=== PATIENT | female | born 1985 | race Caucasian/White ===

== ENCOUNTER 2016-08-10 14:46 | Emergency (ER) | payer OTHER ==
[2016-08-10 15:56] LABS: Glucose,Whole Blood 94 mg/dL (75-99)
[2016-08-10] MEDS ORDERED: SODIUM CHLORIDE 0.9% 1,000 ML IV STA (16:29)
[2016-08-10] MEDS ORDERED: METOCLOPRAMIDE 5 MG/ML 2 ML VIAL IVP STA (16:29)
--- NOTE | 2016-08-10 16:35 | ED ---
General Adult HPI - General Chief complaint: Syncope Stated complaint: syncope Time Seen by Provider: 08/10/16 15:54 Source: patient, family, RN notes reviewed Mode of arrival: wheelchair Limitations: no limitations - History of Present Illness Initial comments: Chief complaint and history of present illness this is a 31-year-old female who after having had minor procedure at the [employer] office was dressed and standing and had a syncopal episode. The blood pressure was hard to obtain in the office her blood sugars 113. She was unconscious for approximately 1 minute did not hurt herself when she fell. There is no seizure activity. She was helped up the washroom symmetrical in the washroom. She then moved to a chair and while there and stated she felt like she was going to pass out and she did become more time but again no seizure activity. Again her blood pressure was hard to obtain. The patient arrived here blood pressure 115/72. 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 He did not seek medical attention at that time. - Related Data Home Medications Medication Instructions Recorded Confirmed Norgestimate-Ethinyl Estradiol 1 tab PO DAILY 05/27/15 08/10/16 [Trinessa Tablet] Acetaminophen Tab [Tylenol Tab] 975 mg PO ONCE 08/10/16 08/10/16 Sertraline [Zoloft] 50 mg PO DAILY 08/10/16 08/10/16 Allergies Allergy/AdvReac Type Severity Reaction Status Date / Time No Known Allergies Allergy Verified 08/10/16 16:00 Review of Systems ROS Statement: Those systems with pertinent positive or pertinent negative responses have been documented in the HPI. Review of systems currently no headache or visual acuity changes no chest pain shortness breath GI/ complaints of problems no neuro deficits. All systems are reviewed. In discussing the situation and the state law no driving for 6 months this seemed to aggravate the patient emotionally and she had a large emesis. Stated she had not felt nauseated beforehand. The patient did not pass out she was on a monitor the time heart rate was approximately 60. She had a cold wet towels placed around her right ear felt better. All systems are reviewed. Past medical problems as noted above Carlos 2 syncopal episodes active back while on the job 1 year ago. Otherwise no other medical problems. Surgeries tonsils and adenoids. Family history mother has diabetes. Patient denies ALLERGIES nonsmoker drink alcohol socially. Denies being overly tired today or last year when it happened for the first time ROS Other: All systems not noted in ROS Statement are negative. Past Medical History Past Medical History: No Reported History History of Any Multi-Drug Resistant Organisms: None Reported Past Surgical History: Adenoidectomy, Tonsillectomy Past Psychological History: No Psychological Hx Reported Smoking Status: Never smoker Past Alcohol Use History: Occasional Past Drug Use History: None Reported General Exam - General Exam Comments Initial Comments: General: The patient is awake and alert, in no distress, and does not appear acutely ill. He is here because she had 2 episodes of syncope after having had cervical biopsy. Patient denies any stress over the situation. Vital signs show temperature 97.8 pulse 60 respiratory rate 20 pulse ox 90% room air blood pressure 115/72 Eye: Pupils are equal, round and reactive to light, extra-ocular movements are intact ; there is normal conjunctiva bilaterally. No signs of icterus. Ears, nose, mouth and throat: There are moist mucous membranes and no oral lesions. Neck: The neck is supple, there is no tenderness or JVD. Cardiovascular: There is a regular rate and rhythm. No murmur, rub or gallop is appreciated. Respiratory: Lungs are clear to auscultation, respirations are non-labored, breath sounds are equal. No wheezes, stridor, rales, or rhonchi. Gastrointestinal: Soft, non-distended, non-tender abdomen without masses or organomegaly noted. There is no rebound or guarding present. No CVA tenderness. Bowel sounds are unremarkable. Back: There is no tenderness to palpation in the midline. There is no obvious deformity. No rashes noted. Musculoskeletal: Normal ROM, no tenderness, There is no pedal edema. There is no calf tenderness or swelling. Sensation intact. Pulses equal bilaterally 2+. Neurological: CN II-XII intact, There are no obvious motor or sensory deficits. Coordination appears grossly intact. Speech is normal. No focal or lateralizing findings Skin: Skin is warm and dry and no rashes or lesions are noted. Limitations: no limitations Course Vital Signs 08/10/16 08/10/16 08/10/16 14:49 16:45 16:46 Temperature 97.8 F 97.4 F L Pulse Rate 60 71 Pulse Rate [ 64 Historic Sites Registrar ] Respiratory 20 18 18 Rate Blood Pressure 115/72 105/78 Blood Pressure 103/76 [Right Arm] O2 Sat by Pulse 98 97 Oximetry 08/10/16 08/10/16 08/10/16 16:48 16:49 18:21 Temperature 97.7 F Pulse Rate 67 Pulse Rate [ 66 62 [employer] Sites Registrar ] Respiratory 18 Rate Blood Pressure 130/85 Blood Pressure 126/77 118/78 [Right Arm] O2 Sat by Pulse 98 Oximetry EKG Findings - EKG Comments: EKG Findings:: EKG was done and reviewed at 1545 showing normal sinus rhythm with sinus arrhythmia. Possible left ventricular hypertrophy. No acute ST elevation no ectopy no ischemic changes. Rate 64 MS interval was 166 QRS 100 QT 4:[address] Zamudio Medical Decision Making - Medical Decision Making Vital decision the white count 12.5 hemoglobin 13 hematocrit of 39 with INR 1.0. Potassium is 4.1 with a BUN 12 creatinine 0.58 and GFR greater than 60. Glucose 83. CK troponin within normal limits. Urine has 6 squamous and moderate leuk esterase but 10 WBCs. This will be cultured. Chest x-ray was done and reviewed by radiologist his impression is there is no focal airspace opacity, pleural effusion, or pneumothorax seen. The cardiac silhouette size is within normal limits. The osseous structures are intact. Impression no acute cardiopulmonary process. As read by Dr. Master Christianson - Lab Data Result diagrams: 08/10/16 15:46 08/10/16 15:46 Lab Results 08/10/16 08/10/16 08/10/16 Range/Units 15:46 15:46 15:46 WBC 12.5 H (3.8-10.6) k/uL RBC 4.23 (3.80-5.40) m/uL Hgb 13.3 (11.4-16.0) gm/dL Hct 39.0 (34.0-46.0) % MCV 92.0 (80.0-100.0) fL MCH 31.5 (25.0-35.0) pg MCHC 34.2 (31.0-37.0) g/dL RDW 13.9 (11.5-15.5) % Plt Count 181 (150-450) k/uL Neutrophils % 82 % Lymphocytes % 11 % Monocytes % 4 % Eosinophils % 1 % Basophils % 0 % Neutrophils # 10.3 H (1.3-7.7) k/uL Lymphocytes # 1.4 (1.0-4.8) k/uL Monocytes # 0.6 (0-1.0) k/uL Eosinophils # 0.1 (0-0.7) k/uL Basophils # 0.0 (0-0.2) k/uL PT (9.0-12.0) sec INR (<1.1) APTT (22.0-30.0) sec Sodium 137 (137-145) mmol/L Potassium 4.1 (3.5-5.1) mmol/L Chloride 108 H (98-107) mmol/L Carbon Dioxide 19 L (22-30) mmol/L Anion Gap 10 mmol/L BUN 12 (7-17) mg/dL Creatinine 0.58 (0.52-1.04) mg/dL Est GFR (MDRD) Af Amer >60 (>60 ml/min/1.73 sqM) Est GFR (MDRD) Non-Af >60 (>60 ml/min/1.73 sqM) Glucose 83 (74-99) mg/dL POC Glucose (mg/dL) (75-99) mg/dL POC Glu Dishroom Attendant ID Calcium 9.1 (8.4-10.2) mg/dL Total Bilirubin 0.5 (0.2-1.3) mg/dL AST 32 (14-36) U/L ALT 30 (9-52) U/L Alkaline Phosphatase 67 (38-126) U/L Total Creatine Kinase 137 H (30-135) U/L CK-MB (CK-2) 1.6 (0.0-2.4) ng/mL CK-MB (CK-2) Rel Index 1.2 Troponin I <0.012 (0.000-0.034) ng/mL Total Protein 7.5 (6.3-8.2) g/dL Albumin 4.0 (3.5-5.0) g/dL Urine Color Urine Appearance (Clear) Urine pH (5.0-8.0) Ur Specific [place] (1.001-1.035) Urine Protein (Negative) Urine Glucose (UA) (Negative) Urine Ketones (Negative) Urine Blood (Negative) Urine Nitrite (Negative) Urine Bilirubin (Negative) Urine Urobilinogen (<2.0) mg/dL Ur Leukocyte Esterase (Negative) Urine RBC (0-5) /hpf Urine WBC (0-5) /hpf Ur Squamous Epith Cells (0-4) /hpf Hyaline Casts (0-2) /lpf Urine Mucus (None) /hpf 08/10/16 08/10/16 08/10/16 Range/Units 15:46 15:54 16:56 WBC (3.8-10.6) k/uL RBC (3.80-5.40) m/uL Hgb (11.4-16.0) gm/dL Hct (34.0-46.0) % MCV (80.0-100.0) fL MCH (25.0-35.0) pg MCHC (31.0-37.0) g/dL RDW (11.5-15.5) % Plt Count (150-450) k/uL Neutrophils % % Lymphocytes % % Monocytes % % Eosinophils % % Basophils % % Neutrophils # (1.3-7.7) k/uL Lymphocytes # (1.0-4.8) k/uL Monocytes # (0-1.0) k/uL Eosinophils # (0-0.7) k/uL Basophils # (0-0.2) k/uL PT 10.1 (9.0-12.0) sec INR 1.0 (<1.1) APTT 21.1 L (22.0-30.0) sec Sodium (137-145) mmol/L Potassium (3.5-5.1) mmol/L Chloride (98-107) mmol/L Carbon Dioxide (22-30) mmol/L Anion Gap mmol/L BUN (7-17) mg/dL Creatinine (0.52-1.04) mg/dL Est GFR (MDRD) Af Amer (>60 ml/min/1.73 sqM) Est GFR (MDRD) Non-Af (>60 ml/min/1.73 sqM) Glucose (74-99) mg/dL POC Glucose (mg/dL) 94 (75-99) mg/dL POC Glu Dishroom Attendant ID Moran, Diamond Calcium (8.4-10.2) mg/dL Total Bilirubin (0.2-1.3) mg/dL AST (14-36) U/L ALT (9-52) U/L Alkaline Phosphatase (38-126) U/L Total Creatine Kinase (30-135) U/L CK-MB (CK-2) (0.0-2.4) ng/mL CK-MB (CK-2) Rel Index Troponin I (0.000-0.034) ng/mL Total Protein (6.3-8.2) g/dL Albumin (3.5-5.0) g/dL Urine Color Yellow Urine Appearance Cloudy H (Clear) Urine pH 5.5 (5.0-8.0) Ur Specific [place] 1.026 (1.001-1.035) Urine Protein 2+ H (Negative) Urine Glucose (UA) Negative (Negative) Urine Ketones Negative (Negative) Urine Blood Moderate H (Negative) Urine Nitrite Negative (Negative) Urine Bilirubin Negative (Negative) Urine Urobilinogen <2.0 (<2.0) mg/dL Ur Leukocyte Esterase Moderate H (Negative) Urine RBC 4 (0-5) /hpf Urine WBC 10 H (0-5) /hpf Ur Squamous Epith Cells 6 H (0-4) /hpf Hyaline Casts 1 (0-2) /lpf Urine Mucus Rare H (None) /hpf Disposition Clinical Impression: Syncope and collapse Disposition: HOME SELF-CARE Condition: Stable Instructions: Syncope (ED) Additional Instructions: Follow-up with the family physician. No driving for 6 months until cleared by your physician, appliance counselor or neurologist. Change positions slowly. Stay hydrated. Referrals: Bertin Haley MD [Primary Care Provider] - 1-2 days Time of Disposition: 18:32
[2016-08-10 16:45] VITALS: RESP 18
[2016-08-10 16:59] LABS: Basophils % (A) 0 %; CH 31.6; CHCM 34.5; Eosinophils # (A) 0.1 k/uL (0-0.7); Eosinophils % (A) 1 %; HDW 2.79; HGB 13.3 gm/dL (11.4-16.0); Luc # (Auto) 0.16; Luc % (Auto) 1; Lymphocytes # (A) 1.4 k/uL (1.0-4.8); Lymphocytes % (A) 11 %; MCH 31.5 pg (25.0-35.0); MCHC 34.2 g/dL (31.0-37.0); Mean Platelet Volume 7.3; Monocytes # (A) 0.6 k/uL (0-1.0); Monocytes % (A) 4 %; Neutrophils # (A) 10.3 k/uL (1.3-7.7); Neutrophils % (A) 82 %; RBC 4.23 m/uL (3.80-5.40); RDW 13.9 % (11.5-15.5); WBC 12.5 k/uL (3.8-10.6)
[2016-08-10 17:11] LABS: Appearance,Urine Cloudy (Clear); Bilirubin,Urine Negative (Negative); Glucose,Urine (UA) Negative (Negative); Ketones,Urine Negative (Negative); Leukocyte Esterase,Urine Moderate (Negative); Mucus,Urine Rare /hpf; Nitrite,Urine Negative (Negative); PH, Urine 5.5 (5.0-8.0); Particle Count 13317; Protein,Urine 2+ (Negative); RBC,Urine 4 /hpf (0-5); Specific Gravity,Urine 1.026 (1.001-1.035); Squamous Epithelial Cell,Urine 6 /hpf (0-4); UA Billing (MACRO vs. MICRO) MICRO; Urobilinogen,Urine <2.0 mg/dL (<2.0); WBC,Urine 10 /hpf (0-5)
[2016-08-10 17:11] LABS: ALT 30 U/L (9-52); AST 32 U/L (14-36); Alkaline Phosphatase 67 U/L (38-126); Anion Gap 10 mmol/L; Blood Urea Nitrogen 12 mg/dL (7-17); Calcium 9.1 mg/dL (8.4-10.2); Carbon Dioxide 19 mmol/L (22-30); Chloride 108 mmol/L (98-107); Glucose 83 mg/dL (74-99); Non-African American GFR(MDRD) >60 (>60 ml/min/1.73 sqM); Potassium 4.1 mmol/L (3.5-5.1); Prothrombin Time 10.1 sec (9.0-12.0); Sodium 137 mmol/L (137-145); Total Bilirubin 0.5 mg/dL (0.2-1.3); Total Protein 7.5 g/dL (6.3-8.2)
[2016-08-10 17:26] LABS: Creatine Kinase 137 U/L (30-135)
[2016-08-10 17:33] LABS: Partial Thromboplastin Time 21.1 sec (22.0-30.0)
[2016-08-10 17:39] LABS: Creatine Kinase MB 1.6 ng/mL (0.0-2.4); Troponin I <0.012 ng/mL (0.000-0.034)
--- NOTE | 2016-08-10 18:01 | XR ---
EXAMINATION TYPE: XR chest 2V DATE OF EXAM: 08/10/2016 COMPARISON: NONE HISTORY: Syncopal episodes TECHNIQUE: Frontal and lateral views of the chest are obtained. FINDINGS: There is no focal air space opacity, pleural effusion, or pneumothorax seen. The cardiac silhouette size is within normal limits. The osseous structures are intact. IMPRESSION: No acute cardiopulmonary process.
[2016-08-10 18:23] VITALS: BP 130/85; PULSE 67; TEMP 97.7
== END 2016-08-10 18:47 | disposition home or self-care (01) ==
LOC: EC 14:46
DX: R55 Syncope and collapse (principal); Z79.3 Long term (current) use of hormonal contraceptives; Z79.899 Other long term (current) drug therapy
CPT/HCPCS: 36415; 93005; 80053; 82550; 82553; 84484; 85025; 85610; 85730; 81001; 87086; 71020; 99284; 96374; 96361; J2765

== ENCOUNTER → 2017-07-12 | Outpatient (CLI) | payer OTHER ==
--- NOTE | 2017-07-12 15:51 | US ---
EXAMINATION TYPE: US pelvis complete transvag DATE OF EXAM: 07/12/2017 COMPARISON: CT dated 12/23/2016 & US dated 12/24/2016 CLINICAL HISTORY: Right Pelvic Mass R19.00. TECHNIQUE: Transvaginal (TV) and Transabdominal (TA) . Transabdominal sonographic images of the pel vis were acquired. Transvaginal sonographic images were medically necessary to better assess the fol lowing anatomy: Pelvic mass Date of LMP: 07/04/2017 EXAM MEASUREMENTS: Uterus: 10.7 x 3.7x 5.9 cm Endometrial Stripe: 0.8 cm Right Ovary: 5.2 x 2.7 x 4.2 cm Left Ovary: 4.3 x 3.6 x 3.2 cm Mass noted rt adnexa, which is believed to be exophytic fibroid as normal right ovary is seen. This m ass appears as right ovary transabdominally, but transvaginally there is a normal right ovary and mas s sits between uterus and ovary. Seen on prior imaging. 1. Uterus: Anteverted calcified mass fundally measures 1.1 x 1.0 x 1.6 cm, seen on prior. 2. Endometrium: wnl 3. Right Ovary: wnl 4. Left Ovary: cyst measures 2.1 x 2.0 x 1.9 cm. 5. Bilateral Adnexa: wnl 6. Posterior cul-de-sac: no free fluid IMPRESSION: Essentially stable findings within the uterus, findings suggest exophytic fibroid which c ould be confirmed on MRI.
== END | disposition home or self-care (01) ==
LOC: RADUSWWP 13:05
PROVIDERS: ATTEND Obstetrics & Gynecology
DX: R19.00 Intra-abdominal and pelvic swelling, mass and lump, unspecified site (principal)
CPT/HCPCS: 76830; 76856

== ENCOUNTER → 2022-07-08 | Outpatient (CLI) | payer OTHER ==
--- NOTE | 2022-07-09 19:24 | MM ---
Reason for Exam: Screening (asymptomatic). Patient History: Menarche at age 9. Patient has no children. Premenopausal. Hormonal Contraceptives for 10 years from age 27 until age 37. Last menstrual period: 06/28/2022 Risk Values: Fawn 5 year model risk: 0.6%. NCI Lifetime model risk: 12.2%. Tissue Density: There are scattered fibroglandular densities. Findings: Analyzed By CAD. No significant mass, suspicious microcalcification, or other discrete abnormality is seen on either side. Overall Assessment: Negative, BI-RAD 1 Management: Screening Mammogram of both breasts in 1 year. . Patient should continue monthly self-breast exams. A clinical breast exam by your physician is recommended on an annual basis. This exam should not preclude additional follow-up of suspicious palpable abnormalities. Note on Fawn scores and lifetime risk: 1. A Fawn score greater than 3% is considered moderate risk. If this is the case, consider specialist referral to assess eligibility for a risk reducing agent. 2. If overall lifetime risk for the development of breast cancer is 20% or higher, the patient may qualify for future screening with alternating mammogram and breast MRI. Electronically signed and approved by: Richard Navas M.D. Radiologist
== END | disposition home or self-care (01) ==
LOC: RADMAMWWP 13:15
PROVIDERS: ATTEND Obstetrics & Gynecology
DX: Z12.31 Encounter for screening mammogram for malignant neoplasm of breast (principal)
CPT/HCPCS: 77063; 77067